=== PATIENT | female | born 1980 | race Caucasian/White ===

== ENCOUNTER 2017-12-05 13:40 | Inpatient (IN) | payer OTHER ==
[~2017-12-05] VITALS: Ht 170.2 cm; Wt 54.6 kg
[~2017-12-05 13:40] MED LIST: ADVIL,NUPRIN,M200 MG PO; ANTACID LIQUID355 ML PO; APRESOLINE25 MG PO; BYSTOLIC20 MG PO; DILAUDID4 MG PO; HYDROCHLOROTHIA25 MG PO; K-DUR20 MEQ PO; LISINOPRIL20 MG PO; LOPRESSOR100 M1 PO; MIRALAX255 GM PO; NIFEDIPINE ER60 MG PO; PROMETHAZINE HC25 M1 PO
[2017-12-05 15:26] LABS: HEMATOCRIT 21.1 % (36.0-46.0); HEMOGLOBIN 7.6 G/DL (11.9-15.5); MCH 32.8 PG (29.0-34.0); MCV 90.9 FL (83-99); PLATELET COUNT 128 K/uL (156-360); RBC DIS.WIDTH-CV 14.3 % (11.8-14.6); RBC DIS.WIDTH-SD 47.1 % (39-53); RED BLOOD COUNT 2.32 M/uL (3.80-5.20); WHITE BLOOD COUNT 7.7 K/uL (4.1-10.2)
[2017-12-05 15:36] LABS: CHLORIDE 89 mEq/L (99-109); POTASSIUM 2.6 mEq/L (3.7-5.4); SODIUM 132 mEq/L (136-147)
[2017-12-05 15:39] LABS: GLUCOSE 98 mg/dL (70-99); TOTAL PROTEIN 6.7 g/dL (6.4-8.3)
[2017-12-05 15:41] LABS: TOTAL BILIRUBIN 0.4 mg/dL (0.0-1.0)
[2017-12-05 15:42] LABS: ALKALINE PHOSPHATASE 47 IU/L (3-129); GFR ESTIMATE (CALCULATED) 4 mL/min/
[2017-12-05 15:44] LABS: AST (GOT) 12 IU/L (2-34)
[2017-12-05 15:45] LABS: ALT (GPT) 10 IU/L (3-49)
[2017-12-05 15:49] LABS: TROP-I INTERPRETATION NEGATIVE; TROPONIN-I 0.22 ng/mL (0.0-0.30)
[2017-12-05 15:53] LABS: UREA NITROGEN (BUN) 112 mg/dL (9-23)
[2017-12-05] MEDS ORDERED: EXCEDRIN MIGRA1 EAC3 PO (18:22)
[2017-12-05 19:39] LABS: HEMATOCRIT 20.5 % (36.0-46.0); HEMOGLOBIN 7.6 G/DL (11.9-15.5); MCHC 37.1 G/DL (30.0-36.0); MCV 89.1 FL (83-99); PLATELET COUNT 139 K/uL (156-360); RBC DIS.WIDTH-SD 45.1 % (39-53); WHITE BLOOD COUNT 7.3 K/uL (4.1-10.2)
[2017-12-05 19:48] LABS: CHLORIDE 88 mEq/L (99-109); POTASSIUM 2.6 mEq/L (3.7-5.4); SODIUM 129 mEq/L (136-147)
[2017-12-05 19:49] LABS: GLUCOSE 91 mg/dL (70-99)
[2017-12-05 19:53] LABS: CREATININE 10.9 mg/dL (0.6-1.3); GFR ESTIMATE (CALCULATED) 4 mL/min/
[2017-12-05 19:56] LABS: LIPASE 48 U/L (1.0-51.0)
[2017-12-05 20:00] LABS: UREA NITROGEN (BUN) 106 mg/dL (9-23)
[2017-12-05 20:46] LABS: IRON 61 MCG/DL (35-150)
[2017-12-05 20:55] LABS: FERRITIN 49 NG/ML (10-291)
[2017-12-06] VITALS (8 sets, daily range): BP systolic 161–200; BP diastolic 101–122
[2017-12-06 06:23] LABS: BASOPHIL (%) 0.1 % (0-1); EOSINOPHIL (%) 0.9 % (0-5); EOSINOPHIL COUNT 0.1 K/uL (0-0.3); HEMATOCRIT 19.7 % (36.0-46.0); HEMOGLOBIN 7.1 G/DL (11.9-15.5); IMMATURE GRANULOCYTE (%) 0.1 % (0.0-0.7); LYMPHOCYTE (%) 17.9 % (15-42); LYMPHOCYTE COUNT 1.5 K/uL (1.0-2.8); MCH 32.9 PG (29.0-34.0); MCV 91.2 FL (83-99); MONOCYTE COUNT 0.3 K/uL (0-0.8); NEUTROPHIL COUNT 6.3 K/uL (1.8-6.4); PLATELET COUNT 144 K/uL (156-360); RBC DIS.WIDTH-CV 14.6 % (11.8-14.6); RBC DIS.WIDTH-SD 48.1 % (39-53); RED BLOOD COUNT 2.16 M/uL (3.80-5.20); WHITE BLOOD COUNT 8.2 K/uL (4.1-10.2)
[2017-12-06 06:34] LABS: CHLORIDE 92 mEq/L (99-109); SODIUM 129 mEq/L (136-147)
[2017-12-06 06:35] LABS: POTASSIUM 3.3 mEq/L (3.7-5.4)
[2017-12-06 06:36] LABS: GLUCOSE 109 mg/dL (70-99); TOTAL PROTEIN 6.6 g/dL (6.4-8.3)
[2017-12-06 06:38] LABS: TOTAL BILIRUBIN 0.4 mg/dL (0.0-1.0)
[2017-12-06 06:39] LABS: ALKALINE PHOSPHATASE 62 IU/L (3-129)
[2017-12-06 06:40] LABS: CREATININE 10.8 mg/dL (0.6-1.3); GFR ESTIMATE (CALCULATED) 4 mL/min/
[2017-12-06 06:43] LABS: AST (GOT) 20 IU/L (2-34); LIPASE 18 U/L (1.0-51.0); UREA NITROGEN (BUN) 108 mg/dL (9-23)
[2017-12-06 06:45] LABS: ALT (GPT) 22 IU/L (3-49)
[2017-12-06 08:22] LABS: THYROTROPIN (TSH) 1.5 MIU/L (0.4-5.5)
[2017-12-06 13:55] LABS: ACETAMINOPHEN (TYLENOL) < 10 MCG/ML (10-30); SALICYLATE < 3.0 MG/DL (15-30)
[2017-12-07] VITALS (12 sets, daily range): BP systolic 105–190; BP diastolic 65–113
[2017-12-07 03:50] LABS: APPEARANCE CLEAR ((CLEAR)); BILIRUBIN NEGATIVE; BLOOD MODERATE; COLOR YELLOW ((YELLOW)); GLUCOSE (STRIP) NEGATIVE; KETONES NEGATIVE; LEUKOCYTES NEGATIVE; NITRITE NEGATIVE; PROTEIN (STRIP) 100; SPECIFIC GRAVITY 1.011 (1.000-1.030); UROBILINOGEN 0.2 MG/DL (0.2-1.0)
[2017-12-07 04:25] LABS: BACTERIA RARE /HPF; EPITHELIAL CELLS RARE /HPF; MUCUS TRACE /LPF; WHITE BLOOD CELLS NONE SEEN /HPF (0-5)
[2017-12-07 07:47] LABS: EOSINOPHILS,URINE NONE SEEN
[2017-12-07 11:13] LABS: BASOPHIL (%) 0.1 % (0-1); EOSINOPHIL (%) 0.4 % (0-5); EOSINOPHIL COUNT 0.1 K/uL (0-0.3); HEMATOCRIT 26.4 % (36.0-46.0); IMMATURE GRANULOCYTE (%) 0.4 % (0.0-0.7); LYMPHOCYTE (%) 5.3 % (15-42); LYMPHOCYTE COUNT 0.7 K/uL (1.0-2.8); MCH 32.3 PG (29.0-34.0); MCHC 35.2 G/DL (30.0-36.0); MCV 91.7 FL (83-99); MONOCYTE (%) 4.6 % (3-12); MONOCYTE COUNT 0.6 K/uL (0-0.8); NEUTROPHIL (%) 89.2 % (45-76); NEUTROPHIL COUNT 11.5 K/uL (1.8-6.4); PLATELET COUNT 123 K/uL (156-360); RBC DIS.WIDTH-SD 56.5 % (39-53); WHITE BLOOD COUNT 12.9 K/uL (4.1-10.2)
[2017-12-07 11:16] LABS: ALBUMIN 3.8 G/DL (3.2-4.8); ALKALINE PHOSPHATASE 69 IU/L (3-129); ALT (GPT) 16 IU/L (3-49); AST (GOT) 15 IU/L (2-34); CHLORIDE 92 MEQ/L (99-109); GLUCOSE 90 mg/dL (70-99); SODIUM 128 MEQ/L (136-147); TOTAL BILIRUBIN 0.7 MG/DL (0.0-1.0); UREA NITROGEN (BUN) 54 mg/dL (9-23)
[2017-12-07 11:16] LABS: C4 COMPLEMENT 26 MG/DL (10-40)
[2017-12-07 11:19] LABS: A/G RATIO 1.5 (1.1-1.8); ALBUMIN 3.7 G/DL (3.4-5.0); CHLORIDE 93 MEQ/L (99-109); GLOBULINS 2.5 G/DL (2.3-3.5); GLUCOSE 90 mg/dL (70-99); LIPASE 48 U/L (1.0-51.0); SODIUM 128 MEQ/L (136-147); TOTAL PROTEIN 6.2 G/DL (6.4-8.2); UREA NITROGEN (BUN) 55 mg/dL (9-23)
[2017-12-07 11:20] LABS: CREATININE 6.8 MG/DL (0.6-1.3); GFR ESTIMATE (CALCULATED) 7 mL/min/; HEMOGLOBIN 9.3 G/DL (11.9-15.5); POTASSIUM 4.9 MEQ/L (3.7-5.4); RED BLOOD COUNT 2.88 M/uL (3.80-5.20)
[2017-12-07 11:21] LABS: GFR ESTIMATE (CALCULATED) 7 mL/min/; POTASSIUM 4.8 MEQ/L (3.7-5.4)
[2017-12-07 11:48] LABS: ANTI-HEPATITIS B CORE (TOTAL) Nonreactive
[2017-12-07 11:59] LABS: HEPATITIS B SURFACE ANTIGEN Nonreactive
[2017-12-07 12:00] LABS: HEPATITIS C ANTIBODY Nonreactive
[2017-12-07 12:35] LABS: HEPATITIS B SURFACE ANTIBODY REACTIVE
[2017-12-07 15:27] LABS: ALBUMIN 3.71 G/DL (3.6-4.9); ALPHA-1 GLOBULIN 0.48 G/DL (0.15-0.40); BETA-GLOBULIN 0.65 G/DL (0.65-1.15); GAMMA-GLOBULIN 0.76 G/DL (0.60-1.35)
[2017-12-08] VITALS (7 sets, daily range): BP systolic 105–168; BP diastolic 56–94
[2017-12-08 08:34] LABS: BASOPHIL (%) 0.2 % (0-1); EOSINOPHIL (%) 1.4 % (0-5); EOSINOPHIL COUNT 0.2 K/uL (0-0.3); HEMOGLOBIN 9.4 G/DL (11.9-15.5); IMMATURE GRANULOCYTE (%) 0.4 % (0.0-0.7); LYMPHOCYTE (%) 8.4 % (15-42); LYMPHOCYTE COUNT 1.2 K/uL (1.0-2.8); MCH 31.2 PG (29.0-34.0); MCHC 33.6 G/DL (30.0-36.0); MONOCYTE (%) 5.4 % (3-12); MONOCYTE COUNT 0.8 K/uL (0-0.8); NEUTROPHIL (%) 84.2 % (45-76); NEUTROPHIL COUNT 11.9 K/uL (1.8-6.4); RBC DIS.WIDTH-CV 16.9 % (11.8-14.6); RBC DIS.WIDTH-SD 56.4 % (39-53); RED BLOOD COUNT 3.01 M/uL (3.80-5.20); WHITE BLOOD COUNT 14.1 K/uL (4.1-10.2)
[2017-12-08 08:35] LABS: PLATELET COUNT 162 K/uL (156-360)
[2017-12-08 08:46] LABS: CHLORIDE 92 MEQ/L (99-109); CREATININE 5.5 MG/DL (0.6-1.3); GFR ESTIMATE (CALCULATED) 9 mL/min/; GLUCOSE 80 mg/dL (70-99); POTASSIUM 4.4 MEQ/L (3.7-5.4); SODIUM 129 MEQ/L (136-147); UREA NITROGEN (BUN) 36 mg/dL (9-23)
[2017-12-08 18:00] LABS: TROP-I INTERPRETATION NEGATIVE; TROPONIN-I 0.17 ng/mL (0.0-0.30)
[2017-12-09] VITALS (7 sets, daily range): BP systolic 114–171; BP diastolic 71–97
[2017-12-09 22:12] LABS: GLOMERULAR BASEMENT MEMB ABY+ <1.0 AI (<1.0); MYELOPEROXIDASE ANTIBODY (MPO) <1.0 AI (<1.0); PROTEINASE-3 ANTIBODY+ <1.0 AI (<1.0)
[2017-12-09 22:13] LABS: ERYTHROPOIETIN+ 17.2 mIU/mL (2.6-18.5)
[2017-12-10 04:20] VITALS: BP 154/80
[2017-12-10 06:00] LABS: BASOPHIL (%) 0.2 % (0-1); EOSINOPHIL (%) 3.8 % (0-5); EOSINOPHIL COUNT 0.5 K/uL (0-0.3); HEMATOCRIT 30.4 % (36.0-46.0); HEMOGLOBIN 10.1 G/DL (11.9-15.5); IMMATURE GRANULOCYTE (%) 0.4 % (0.0-0.7); LYMPHOCYTE (%) 8.6 % (15-42); LYMPHOCYTE COUNT 1.2 K/uL (1.0-2.8); MCH 31.7 PG (29.0-34.0); MCHC 33.2 G/DL (30.0-36.0); MCV 95.3 FL (83-99); MONOCYTE (%) 5.2 % (3-12); MONOCYTE COUNT 0.7 K/uL (0-0.8); NEUTROPHIL (%) 81.8 % (45-76); NEUTROPHIL COUNT 11.4 K/uL (1.8-6.4); RBC DIS.WIDTH-CV 15.2 % (11.8-14.6); RBC DIS.WIDTH-SD 53.4 % (39-53); RED BLOOD COUNT 3.19 M/uL (3.80-5.20)
[2017-12-10 06:04] LABS: PLATELET COUNT 226 K/uL (156-360)
[2017-12-10 06:49] LABS: CHLORIDE 94 MEQ/L (99-109); GFR ESTIMATE (CALCULATED) 8 mL/min/; GLUCOSE 93 mg/dL (70-99); POTASSIUM 4.1 MEQ/L (3.7-5.4); SODIUM 129 MEQ/L (136-147); UREA NITROGEN (BUN) 35 mg/dL (9-23)
[2017-12-10 06:51] LABS: CREATININE 6.6 MG/DL (0.6-1.3)
[2017-12-10 08:02] VITALS: BP 144/86
[2017-12-10 16:12] VITALS: BP 136/83
[2017-12-11] VITALS: BP 136/82
[2017-12-11 06:04] LABS: HEMATOCRIT 28.2 % (36.0-46.0); HEMOGLOBIN 9.4 G/DL (11.9-15.5); MCH 31.4 PG (29.0-34.0); MCHC 33.3 G/DL (30.0-36.0); MCV 94.3 FL (83-99); PLATELET COUNT 237 K/uL (156-360); RBC DIS.WIDTH-CV 14.6 % (11.8-14.6); RBC DIS.WIDTH-SD 50.2 % (39-53); RED BLOOD COUNT 2.99 M/uL (3.80-5.20); WHITE BLOOD COUNT 10.4 K/uL (4.1-10.2)
[2017-12-11 07:20] LABS: ALKALINE PHOSPHATASE 50 IU/L (3-129); ALT (GPT) < 3 IU/L (3-49); AST (GOT) 9 IU/L (2-34); CHLORIDE 92 MEQ/L (99-109); CREATININE 7.9 MG/DL (0.6-1.3); GFR ESTIMATE (CALCULATED) 6 mL/min/; GLUCOSE 98 mg/dL (70-99); SODIUM 131 MEQ/L (136-147); TOTAL BILIRUBIN 0.3 MG/DL (0.0-1.0); TOTAL PROTEIN 5.4 G/DL (6.4-8.3); UREA NITROGEN (BUN) 44 mg/dL (9-23)
[2017-12-11 11:48] LABS: PTT 27.2 SEC (25-37)
[2017-12-11 15:48] VITALS: BP 154/94
[2017-12-11 23:30] VITALS: BP 141/89
[2017-12-12 06:15] LABS: BASOPHIL (%) 0.4 % (0-1); EOSINOPHIL (%) 9.3 % (0-5); EOSINOPHIL COUNT 0.8 K/uL (0-0.3); HEMATOCRIT 27.8 % (36.0-46.0); HEMOGLOBIN 9.2 G/DL (11.9-15.5); IMMATURE GRANULOCYTE (%) 0.2 % (0.0-0.7); LYMPHOCYTE (%) 18.7 % (15-42); LYMPHOCYTE COUNT 1.5 K/uL (1.0-2.8); MCH 31.4 PG (29.0-34.0); MCHC 33.1 G/DL (30.0-36.0); MCV 94.9 FL (83-99); MONOCYTE COUNT 0.6 K/uL (0-0.8); NEUTROPHIL (%) 64.4 % (45-76); NEUTROPHIL COUNT 5.3 K/uL (1.8-6.4); PLATELET COUNT 232 K/uL (156-360); RBC DIS.WIDTH-CV 14.6 % (11.8-14.6); RBC DIS.WIDTH-SD 50.1 % (39-53); RED BLOOD COUNT 2.93 M/uL (3.80-5.20); WHITE BLOOD COUNT 8.2 K/uL (4.1-10.2)
[2017-12-12 06:27] LABS: PTT 27.7 SEC (25-37)
[2017-12-12 06:50] LABS: CHLORIDE 98 MEQ/L (99-109); CREATININE 5.1 MG/DL (0.6-1.3); GFR ESTIMATE (CALCULATED) 10 mL/min/; GLUCOSE 103 mg/dL (70-99); POTASSIUM 4.1 MEQ/L (3.7-5.4); SODIUM 135 MEQ/L (136-147); UREA NITROGEN (BUN) 22 mg/dL (9-23)
[2017-12-12 08:32] VITALS: BP 163/94
[2017-12-12 17:00] VITALS: BP 139/96
[2017-12-12 23:25] VITALS: BP 166/97
[2017-12-13 05:39] LABS: BASOPHIL (%) 0.4 % (0-1); EOSINOPHIL (%) 11.2 % (0-5); EOSINOPHIL COUNT 0.8 K/uL (0-0.3); HEMATOCRIT 26.6 % (36.0-46.0); HEMOGLOBIN 8.7 G/DL (11.9-15.5); IMMATURE GRANULOCYTE (%) 0.3 % (0.0-0.7); LYMPHOCYTE (%) 27.2 % (15-42); LYMPHOCYTE COUNT 1.9 K/uL (1.0-2.8); MCH 31.3 PG (29.0-34.0); MCHC 32.7 G/DL (30.0-36.0); MCV 95.7 FL (83-99); MONOCYTE (%) 9.3 % (3-12); MONOCYTE COUNT 0.6 K/uL (0-0.8); NEUTROPHIL (%) 51.6 % (45-76); NEUTROPHIL COUNT 3.5 K/uL (1.8-6.4); PLATELET COUNT 230 K/uL (156-360); RBC DIS.WIDTH-CV 14.5 % (11.8-14.6); RBC DIS.WIDTH-SD 50.4 % (39-53); RED BLOOD COUNT 2.78 M/uL (3.80-5.20); WHITE BLOOD COUNT 6.9 K/uL (4.1-10.2)
[2017-12-13 05:58] LABS: CHLORIDE 99 MEQ/L (99-109); GFR ESTIMATE (CALCULATED) 8 mL/min/; GLUCOSE 90 mg/dL (70-99); MAGNESIUM 1.9 mg/dl (1.3-2.7); PHOSPHORUS 5.4 mg/dL (2.5-4.9); POTASSIUM 4.3 MEQ/L (3.7-5.4); SODIUM 135 MEQ/L (136-147); UREA NITROGEN (BUN) 31 mg/dL (9-23)
[2017-12-13 05:59] LABS: CREATININE 6.4 MG/DL (0.6-1.3)
[2017-12-13] MEDS ORDERED: DEXILANT60 MG PO (08:32)
[2017-12-13] MEDS ORDERED: NICOTINE PATCH1 EAC1 TD (08:33)
[2017-12-13] MEDS ORDERED: TIZANIDINE HCL4 MG PO (08:33)
[2017-12-13] MEDS ORDERED: LOPRESSOR100 M1 PO (08:33)
[2017-12-13] MEDS ORDERED: APRESOLINE50 MG PO (08:33)
[2017-12-13] MEDS ORDERED: HYDROCODON-ACE1 EAC7 PO (08:33)
[2017-12-13] MEDS ORDERED: NIFEDIPINE ER60 MG PO (08:34)
[2017-12-13 10:23] VITALS: BP 153/90
[2017-12-13 10:55] VITALS: BP 153/90
[2017-12-14 02:34] LABS: HDL CHOLESTEROL 43 MG/DL (Desirable>=50); LDL CHOLESTEROL 62 mg/dL (Desirable<100); NON-HDL CHOLESTEROL 74 mg/dL (Desirable<160); TOTAL CHOLESTEROL 117 mg/dL (Desirable<200); TRIGLYCERIDES 58 MG/DL (Normal: <150)
== END 2017-12-13 14:11 | disposition home or self-care (01) | DRG 304 ==
LOC: EME 13:40 → EDOF 19:10 → 4EAST 19:10 → ENRESERV 19:43 → 4EAST 12-06 10:29 → ENRESERV 12-09 08:07 → 4SOUTH 12-09 12:12
PROVIDERS: Emergency Medicine Emergency Medical Services; Family Medicine; Internal Medicine Nephrology; Radiology Diagnostic Radiology
PROC: 02HV33Z Insertion of Infusion Device into Superior Vena Cava, Percutaneous Approach (ICD-10-PCS; principal; 2017-12-06)
PROC: 5A1D70Z Performance of Urinary Filtration, Intermittent, Less than 6 Hours Per Day (ICD-10-PCS; principal; 2017-12-06)
PROC: B543ZZA Ultrasonography of Right Jugular Veins, Guidance (ICD-10-PCS; principal; 2017-12-06)
PROC: 02HV33Z Insertion of Infusion Device into Superior Vena Cava, Percutaneous Approach (ICD-10-PCS; 2017-12-08)
PROC: B5181ZA Fluoroscopy of Superior Vena Cava using Low Osmolar Contrast, Guidance (ICD-10-PCS; 2017-12-08)
PROC: 0JHD3WZ Insertion of Totally Implantable Vascular Access Device into Right Upper Arm Subcutaneous Tissue and Fascia, Percutaneous Approach (ICD-10-PCS; 2017-12-08)
PROC: 0TB13ZX Excision of Left Kidney, Percutaneous Approach, Diagnostic (ICD-10-PCS; 2017-12-11)
DX: I16.9 Hypertensive crisis, unspecified (principal); J18.1 Lobar pneumonia, unspecified organism; N18.6 End stage renal disease; I63.9 Cerebral infarction, unspecified; N17.9 Acute kidney failure, unspecified; R18.8 Other ascites; E87.2 Acidosis; E87.1 Hypo-osmolality and hyponatremia; I31.3 Pericardial effusion (noninflammatory); I16.1 Hypertensive emergency; K59.00 Constipation, unspecified; J45.909 Unspecified asthma, uncomplicated; J06.9 Acute upper respiratory infection, unspecified; F17.210 Nicotine dependence, cigarettes, uncomplicated; I87.8 Other specified disorders of veins; E11.22 Type 2 diabetes mellitus with diabetic chronic kidney disease; E87.6 Hypokalemia; D63.1 Anemia in chronic kidney disease; I13.11 Hypertensive heart and chronic kidney disease without heart failure, with stage 5 chronic kidney disease, or end stage renal disease; H53.8 Other visual disturbances; R63.0 Anorexia; I27.21 Secondary pulmonary arterial hypertension; I34.0 Nonrheumatic mitral (valve) insufficiency; I35.1 Nonrheumatic aortic (valve) insufficiency; N28.1 Cyst of kidney, acquired; Z68.1 Body mass index [BMI] 19.9 or less, adult; Z99.2 Dependence on renal dialysis; Z91.15 Patient's noncompliance with renal dialysis; Z91.14 Patient's other noncompliance with medication regimen; Z91.19 Patient's noncompliance with other medical treatment and regimen
CPT/HCPCS: 70551; 71045; 71046; 71250; 74019; 74176; 76770; 77012; 80048; 80048 91; 80053; 80061; 81003; 82607; 82668 90; 82728; 83520 90; 83540; 83690; 83735; 83880; 83883 90; 84100; 84165; 84443; 84484; 85025; 85025 91; 85027; 85610; 85730; 86021 90; 86038; 86160; 86235; 86704; 86706; 86803; 86850; 86900; 86901; 86920; 87040; 87340; 87641; 88305; 88313 90; 88346 90; 88348 90; 89190; 93005; 93306; 93880; 94640; 94640 76; 94799; 99202; 99281; 99285; C1750; C1788; C1894; G0480; J0360; J0456; J0690; J0696; J0881; J1200; J1644; J2250; J2270; J2405; J2765; J3010; J3480; P9016; S0020

== ENCOUNTER 2018-04-10 09:44 | Day surgery (SDC) | payer OTHER ==
[~2018-04-10] VITALS: Ht 170.2 cm; Wt 65.4 kg
[~2018-04-10 09:44] MED LIST changes: +ALLERGY10 M1 PO; +APRESOLINE50 MG PO; +COLACE100 MG PO; +COREG12.5 M1 PO; +DEXILANT60 MG PO; +ENDOCET 5-3251 EACH PO; +EXCEDRIN MIGRA1 EAC3 PO; +FERRIC CITRATE210 MG PO; +GENTAMICIN SULF30 GM TP; +HYDROCODON-ACE1 EAC7 PO; +MIRALAX17 GM PO; +NICODERM CQ1 EAC1 TD; +NICOTINE PATCH1 EAC1 TD; +NORMODYNE,TRAN200 MG PO; +PEPCID20 MG PO; +PROCARDIA XL60 MG PO; +RENAL-VITE TAB0.8 MG PO; +TIZANIDINE HCL4 MG PO; +ULTRAM50 MG PO; +VITAMIN D31000 UNI2 PO; +ZANAFLEX4 M1 PO
[2018-04-10 10:22] LABS: HEMATOCRIT 36.4 % (36.0-46.0); MCH 32.9 PG (29.0-34.0); MCV 99.7 FL (83-99); PLATELET COUNT 300 K/uL (156-360); RBC DIS.WIDTH-CV 14.2 % (11.8-14.6); RBC DIS.WIDTH-SD 50.8 % (39-53); RED BLOOD COUNT 3.65 M/uL (3.80-5.20); WHITE BLOOD COUNT 6.2 K/uL (4.1-10.2)
[2018-04-10] MEDS ORDERED: LABETALOL HCL200 MG PO (10:31)
[2018-04-10 10:36] VITALS: BP 137/85
[2018-04-10 10:50] LABS: CHLORIDE 98 MEQ/L (99-109); GFR ESTIMATE (CALCULATED) 7 mL/min/; GLUCOSE 110 mg/dL (70-99); SODIUM 142 MEQ/L (136-147); UREA NITROGEN (BUN) 34 mg/dL (9-23)
[2018-04-10 15:30] VITALS: BP 184/109
[2018-04-10 16:30] VITALS: BP 186/100
== END 2018-04-10 17:00 | disposition home or self-care (01) ==
LOC: SDC 09:44
PROVIDERS: Surgery
PROC: 0JWT33Z Revision of Infusion Device in Trunk Subcutaneous Tissue and Fascia, Percutaneous Approach (ICD-10-PCS; principal; 2018-04-10)
DX: T85.621A Displacement of intraperitoneal dialysis catheter, initial encounter (principal); Y83.1 Surgical operation with implant of artificial internal device as the cause of abnormal reaction of the patient, or of later complication, without mention of misadventure at the time of the procedure; I12.0 Hypertensive chronic kidney disease with stage 5 chronic kidney disease or end stage renal disease; N18.6 End stage renal disease; Z99.2 Dependence on renal dialysis; J45.909 Unspecified asthma, uncomplicated; Z87.891 Personal history of nicotine dependence; Z86.73 Personal history of transient ischemic attack (TIA), and cerebral infarction without residual deficits
CPT/HCPCS: 80048; 85027; 87641; 93005; C1750; J0690; J1100; J1170; J2405; J2710; J3010; J7643; S0020

== ENCOUNTER → 2018-04-27 | Outpatient (CLI) | payer OTHER ==
[~2018-04-27] MED LIST changes: +LABETALOL HCL200 MG PO; +[UNRECOGNIZED DRUG - OTHER] PO
== END | disposition home or self-care (01) ==
LOC: AMB 10:30
PROC: 05PY03Z Removal of Infusion Device from Upper Vein, Open Approach (ICD-10-PCS; principal; 2018-04-27)
DX: Z45.2 Encounter for adjustment and management of vascular access device (principal); N18.6 End stage renal disease